=== PATIENT | male | born 1930 | race Caucasian/White ===

== ENCOUNTER → 2016-08-28 11:17 | Outpatient (CLI) | payer MEDICARE, BC ==
[2011-09-23 13:39] VITALS: BMI 24.4
[2016-08-28 12:22] LABS: INR 11.11 (0.85-1.17); PROTIME 89.5 SECONDS (11.6-15.0)
== END | disposition home or self-care (01) ==
LOC: D.LAB 11:17
PROVIDERS: Internal Medicine Interventional Cardiology
DX: Z95.2 Presence of prosthetic heart valve (principal)

== ENCOUNTER 2017-09-09 04:47 | Inpatient (IN) | payer MEDICARE, BC ==
[~2017-09-09] VITALS: Ht 188 cm; Wt 68.0 kg
--- NOTE | ~2017-09-09 | CN ---
PATIENT NAME:JOANNA BLOUNT MEDICAL RECORD: [id number] : 30 LOCATION:[id number] ADMIT DATE: 09/09/17 ACCOUNT: [id number] CONSULTING PHYSICIAN: REBEL MICHAEL MD REFERRING PHYSICIAN: BENJAMIN MONTANA MD DATE OF CONSULTATION: 09/09/2017 Consultation Note Addendum CHIEF COMPLAINT: Pain. HISTORY OF PRESENT ILLNESS: The patient was admitted with pain. This may be neuropathic pain. He is here with his . Reportedly, he lives at home. He also is accompanied by a daughter and I believe a [id number]. The younger family members have just arrived. The patient has a history of skin cancers. Most of his physicians have been in [place]. Dr. Hoskins was his fabric normalizer here in [facility] and they state that Dr. Hoskins has records regarding Mr. Blount. They stated that they discontinued treatment of some skin cancers a while back. His oncologist is Dr. Sy who is an ENT oncologist in [place]. 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 There is a huge ulcerated hypervascular fungating wound that appears to be skin cancer overlying the right scapula. I think that this is likely thing that is causing him pain and the wound goes deep enough where it may be causing neuropathic pain. When I went into the room, all 4 people pretty much started talking to me at once. I tried to see if I could just talk to 1 person at a time and that was not going to be possible in the room. I left the room with 2 of the family members and they began talking to me out in the phan and then third family member, the came out and she began talking as well. I really was not able to accomplish very much because literally it seemed like everybody was talking to me at the same time and I could not focus on what 1 person was saying. What I was able to determine is that they were wondering whether I was going to operate on the patient, they were wondering what the plan was, they were wondering when I was going to operate, they were wondering whether he should go to hospice, they were wondering whether he needs to go a intermediate, they were wondering whether he is going to be going back home after he was treated here in the hospital. So there is a lot of things to sort out. I spoke with Dr. [place]. I think that the situation to be as much a social situation regarding placement as it is a medical or surgical situation. I am hesitant to interfere with a treatment plan if one has already been laid out for the patient and his skin malignancies. I do not think it is going to be able to go back home and that he will require some inpatient treatment because I do not think his is going to be able to take care of him. The patient is hard of hearing. Also, somewhat confused. The review of systems is therefore unreliable. Also, aggravating and alleviating factors are unreliable as well. This is a consultation note addendum. For the typed portion of the consult note, please see the chart. This would include the past medical and surgical history, current medications, allergies, social history as well as family history. REVIEW OF SYSTEMS: Unreliable due to the fact the patient is hard of hearing and also I believe somewhat confused. PHYSICAL EXAMINATION: CONSULT REPORT [id number] JOANNA BLOUNT GENERAL: The patient does appear acutely ill. Also appears chronically ill. VITAL SIGNS: Reviewed. EARS: The patient is very hard of hearing. EYES: Extraocular movements are intact. NECK: Trachea is midline. CHEST: No intercostal retractions. PULMONARY: Nonlabored, no stridor. ABDOMEN: No peritonitis with movement. INTEGUMENT: Skin lesions as described above. PSYCHIATRIC: Anxious affect. NEUROLOGIC: Hard of hearing. He appears to move all extremities well. BACK: No thoracic kyphosis. LYMPHATICS: No lymphangitic streaking of the exposed extremities. IMPRESSION: Difficult social situation. I spoke with Dr. Montana as well as the sample case porter regarding the patient and my plans for the patient. TRANSINT:[id number] Voice Confirmation ID: [id number] DOCUMENT ID: [id number] REBEL MICHAEL MD CC: [id number] DICTATION DATE: 09/09/17 154 RIVET SPINNER: 09/09/17 1637 DIS IN 09/09/17 [facility] [address] [place] [address]
[2017-09-09 06:07] LABS: BASOPHILS 0.5 % (0-2); EOSINOPHILS 2.4 % (0-7); HEMATOCRIT 39.4 % (42.0-54.0); HEMOGLOBIN 13.5 g/dL (13.5-17.5); IMMATURE GRANULOCYTES 0.1 % (0-5); LYMPHOCYTES 19.3 % (15-50); MCH 30.8 pg (26.0-34.0); MCHC 34.3 g/dL (31.0-37.0); MEAN PLATELET VOLUME 9.3 fL (7.4-10.4); MONOCYTES 9.6 % (2-11); NEUTROPHILS 68.1 % (40-80); RBC 4.38 10x6/uL (4.20-6.10); RDW 13.1 % (11.5-14.5); WBC 7.6 10x3/uL (4.8-10.8)
[2017-09-09 06:10] LABS: ALBUMIN 3.9 g/dL (3.4-5.0); ANION GAP 16.2 mmol/L (8-16); BILIRUBIN - TOTAL 0.4 mg/dL (0.2-1.3); CALCIUM 9.7 mg/dL (8.5-10.1); CARBON DIOXIDE 22.5 mmol/L (21.0-32.0); CREATININE - SERUM 1.6 mg/dL (0.6-1.3); INR 4.03 (0.85-1.17); PLATELET COUNT 370 10x3/uL (130-400); POTASSIUM - SERUM 3.7 mmol/L (3.5-5.1); PROTEIN - SERUM 7.8 g/dL (6.4-8.2); PROTIME 38.4 SECONDS (11.6-15.0)
[2017-09-09 06:11] LABS: APTT 74.8 SECONDS (22.8-39.4)
[2017-09-09 08:18] VITALS: BP 142/64; BMI 19.3
[2017-09-09 08:28] VITALS: BP 158/66
[2017-09-09 10:30] VITALS: BMI 19.2
[2017-09-09 12:15] VITALS: Ht 188 cm; Wt 68.0 kg
[2017-09-09 12:39] VITALS: BP 113/62
[2017-09-09 15:49] VITALS: BP 154/79
== END 2017-09-09 19:39 | disposition hospice, inpatient (51) | DRG 948 ==
LOC: D.ER 04:47 → D.MS 05:48
PROVIDERS: Emergency Medicine
DX: G89.3 Neoplasm related pain (acute) (chronic) (principal); C79.2 Secondary malignant neoplasm of skin; N17.9 Acute kidney failure, unspecified; D68.9 Coagulation defect, unspecified; C44.529 Squamous cell carcinoma of skin of other part of trunk; E11.9 Type 2 diabetes mellitus without complications; F03.90 Unspecified dementia, unspecified severity, without behavioral disturbance, psychotic disturbance, mood disturbance, and anxiety

== ENCOUNTER 2017-09-09 19:46 | Inpatient (IN) | payer OTHER | END 2017-09-11 16:00 | disposition home health service (06) | DRG 951 | LOC: D.MS 19:46 | DX: Z51.5 Encounter for palliative care (principal) ==